=== PATIENT | male | born 1985 | race Caucasian/White ===

== ENCOUNTER 2016-11-14 21:34 | Emergency (ER) | payer MEDICAID ==
[~2016-11-14] VITALS: Ht 180.3 cm; Wt 73.0 kg
[~2016-11-14 21:34] MED LIST: FIORIC PO
[2016-11-14 21:35] VITALS: BP 150/98; PULSE 115; RESP 18; TEMP 98; O2SAT 97
[2016-11-14] MEDS ORDERED: SODIUM CHLORIDE 0.9% FLUSH 5 ML FLUSH IVF PRN (22:30)
[2016-11-14] MEDS ORDERED: KETOROLAC TROMETHAMINE 60 MG/2 ML (IM) VIAL IM ONE (22:30)
[2016-11-14 23:05] LABS: BLOOD, URINE NEG (NEG); COMMENT (UR) CULT NOT INDICATED; CULTURE IF INDICATED CULT NOT INDICATED; GLUCOSE,URINE NEG (NEG); KETONE, URINE 10 mg/dL (NEG); MUCUS URINE MOD /lpf (OCC); NITRITE,URINE NEG (NEG); PH, URINE 5.5 (5.0-8.5); URINE COLOR YELLOW (YELLW/STRAW)
--- NOTE | 2016-11-14 23:45 | RADRPT ---
EXAM DATE/TIME: 11/14/2016 22:50 [place] COMPARISON: No previous studies available for comparison. INDICATIONS : Testicle pain. MEDICAL HISTORY : Left testicle pain. MRSA. SURGICAL HISTORY : None. Right arm has two plates and twelve screws. ENCOUNTER: Initial ACUITY: 3 weeks PAIN SCORE: 4/10 LOCATION: Bilateral testicle. MEASUREMENTS: RIGHT TESTICLE: 4.3 x 3.2 x 2.8 cm LEFT TESTICLE: 4.8 x 3.1 x 1.9 cm FINDINGS: RIGHT TESTICLE: Homogeneous echotexture without intra or extratesticular mass. Blood flow is symmetric and within no rmal limits. There is a minimal hydrocele. No varicocele. Epididymis is within normal limits. LEFT TESTICLE: Homogeneous echotexture without intra or extratesticular mass. Blood flow is symmetric and within no rmal limits. There is a minimal hydrocele. No varicocele. Epididymis is within normal limits. Ther e does appear to be increased flow of the left epididymis. SCROTUM: Within normal limits. CONCLUSION: 1. The testicles appear normal. 2. Increased flow within an otherwise normal left epididymis which could raise the possibility of ehsan e degree of epididymitis. Elier Knight MD on November 14, 2016 at 23:40 Board Certified Radiologist. This report was verified electronically.
--- NOTE | 2016-11-14 23:49 | PD ---
HPI Chief Complaint: Complaint Time Seen by Provider: 22:18 Travel History International Travel<30 days: No Contact w/Intl Traveler<30days: No Traveled to known affect area: No History of Present Illness HPI 31-year-old male here for evaluation of left testicular pain. The patient reports having pain for the last 4 months which have been intermittent, worse last 2 days. Patient feels a slight fullness posterior and superior to his left testicle. He denies trauma. No dysuria. He is sexually active with one partner. PFSH Past Medical History Medical History: Denies Significant Hx Diminished Hearing: No Tetanus Vaccination: Unknown Influenza Vaccination: No Social History Alcohol Use: Yes (OCC) Tobacco Use: Yes (<1/2 PPD) Substance Use: No Allergies-Medications (Allergen,Severity, Reaction): Coded Allergies: *MDRO Multi-Drug Resistant Organism (Unverified Adverse Reaction, Unknown , 11/14/16) MRSA Reported Meds & Prescriptions Reported Meds & Active Scripts Active Fioricet Tab (Acetaminophen/Butalbital/Caffeine) 1 Tab 1 Tab PO Q4H PRN Review of Systems Except as stated in HPI: all other systems reviewed are Neg Physical Exam Narrative GENERAL: Well-developed, well-nourished, comfortable, no acute distress. SKIN: Warm and dry. CARDIOVASCULAR: Regular rate and rhythm. RESPIRATORY: No accessory muscle use. Clear to auscultation. Breath sounds equal bilaterally. GASTROINTESTINAL: Abdomen soft, non-tender, nondistended. : Normal external genitalia. No skin color changes or crepitus. Bilateral testicles are similar in size. Left epididymis is slightly enlarged and slightly tender. No testicular masses. PSYCHIATRIC: Appropriate mood and affect; insight and judgment normal. Data Data Last Documented VS Vital Signs Date Time Temp Pulse Resp B/P Pulse Ox O2 Delivery O2 Flow Rate FiO2 11/14/16 21:35 98.0 115 18 150/98 97 Room Air Orders Urinalysis - C+S If Indicated (11/14/16 22:22) Gc And Chlamydia Pcr (11/14/16 22:22) Us Testicles W Doppler (11/14/16 22:22) Ketorolac Inj (Toradol Inj) (11/14/16 22:30) Sodium Chloride 0.9% Flush (Ns Flush) (11/14/16 22:30) Azithromycin Powd Pack (Zithromax Powd P (11/15/16 00:00) Ceftriaxone Inj (Rocephin Inj) (11/15/16 00:00) Lidocaine 1% Inj (50 Ml) (Xylocaine 1% I (11/15/16 00:00) Labs Laboratory Tests Test 11/14/16 22:30 Urine Color YELLOW Urine Turbidity CLEAR Urine pH 5.5 Urine Specific [place] 1.023 Urine Protein TRACE mg/dL Urine Glucose (UA) NEG mg/dL Urine Ketones 10 mg/dL Urine Occult Blood NEG Urine Nitrite NEG Urine Bilirubin NEG Urine Urobilinogen 2.0 MG/DL Urine Leukocyte Esterase NEG Urine RBC 2 /hpf Urine WBC 4 /hpf Urine Mucus MOD /lpf Microscopic Urinalysis Comment CULT NOT INDICATED MDM Medical Decision Making Medical Screen Exam Complete: Yes Emergency Medical Condition: Yes Differential Diagnosis Epididymitis, varicocele, hydrocele, orchitis, torsion unlikely Narrative Course Vital signs reviewed. Initial heart rate was 115. This improved to a normal rate without any intervention. UA shows moderate mucus, 10 ketones, not suggestive of UTI. Testicular ultrasound: CONCLUSION: 1. The testicles appear normal. 2. Increased flow within an otherwise normal left epididymis which could raise the possibility of some degree of epididymitis. Patient was made aware of all findings. He is resting comfortably. He will be given a dose of IM Rocephin and oral azithromycin here. He works outside in the sun. Because of this I'll not start him on doxycycline and will start him on Levaquin instead. He is stable for discharge home with outpatient follow-up with a urologist this week. He was informed on when to return to the emergency department. He verbalizes understanding and agreement with plan. Diagnosis Primary Impression: Epididymitis Referrals: Derrick Nova DO 1 week Additional Instructions: Follow-up with urologist Dr. Nova or urologist of your choice this week. Take antibiotic as prescribed. Return to the emergency department for worsening symptoms or any other concerns. Scripts Tramadol 50 Mg Tab50 Mg PO Q6H PRN (PAIN) #10 TAB Ref 0 Prov:Trey Clinton MD 11/14/16 Levofloxacin (Levaquin)500 Mg Csm072 Mg PO DAILY 10 Days Ref 0 Prov:Trey Clinton MD 11/14/16 Disposition: DISCHARGE HOME Condition: Stable Trey Clinton MD Nov 14, 2016 23:48
[2016-11-14] MEDS ORDERED: LEVA500T PO (23:54)
[2016-11-14] MEDS ORDERED: TRAM50TA PO (23:54)
[2016-11-15] MEDS ORDERED: cefTRIAXone 250 MG VIAL IM ONE
[2016-11-15] MEDS ORDERED: AZITHROMYCIN PWD FOR SUSP 1 GM PACKET PO ONE
[2016-11-15] MEDS ORDERED: LIDOCAINE HCL 1% 50 ML VIAL XX ONE
[2016-11-15 01:43] LABS: CHLAMYDIA PCR NOT DETECTED (NOT DETECT); NEISSERIA PCR NOT DETECTED (NOT DETECT)
== END 2016-11-15 00:25 | disposition home or self-care (01) ==
LOC: NEPA 21:34
DX: N45.1 Epididymitis (principal); F17.210 Nicotine dependence, cigarettes, uncomplicated
CPT/HCPCS: 76870; 81001; 87491; 87591; 93975; 96372; 99284; J0696; J1885

== ENCOUNTER 2017-07-12 08:44 | Emergency (ER) | payer MEDICAID ==
[~2017-07-12] VITALS: Ht 180.3 cm; Wt 76.0 kg
[~2017-07-12 08:44] MED LIST changes: +LEVA500T PO; +TRAM50TA PO
[2017-07-12 08:46] VITALS: BP 130/86; PULSE 75; RESP 14; TEMP 98.5; O2SAT 98
--- NOTE | 2017-07-12 09:20 | PD ---
HPI Chief Complaint: Oral / Dental Pain or Problem Time Seen by Provider: 09:20 Travel History International Travel<30 days: No Contact w/Intl Traveler<30days: No Traveled to known affect area: No History of Present Illness HPI 32-year-old male presents emergency Department with complaint of left lower dental pain 3 days with worsening this morning when he woke up with left lower facial swelling. Denies fever, vomiting. Denies sore throat or difficulty swallowing. Been taking aspirin for symptom management. Describes pain as an ache. Pain is 10/10. Pain is constantly aggravated. No known relieving factors. Says he has a dentist and follow-up with. Has no medical other complaints. No known allergies. No other modifying factors or associated signs and symptoms. PFSH Past Medical History Diminished Hearing: No Social History Alcohol Use: Yes Tobacco Use: Yes Substance Use: No Allergies-Medications (Allergen,Severity, Reaction): Coded Allergies: *MDRO Multi-Drug Resistant Organism (Unverified Adverse Reaction, Unknown , 11/14/16) MRSA Reported Meds & Prescriptions Reported Meds & Active Scripts Active Peridex Liq (Chlorhexidine Gluconate (Mouth) Liq) 0.12% Soln 15 Ml SWISH-SPIT BID 10 Days Deltasone (Prednisone) 20 Mg Tab 40 Mg PO DAILY 4 Days start 07/13/2017 Clindamycin (Clindamycin HCl) 150 Mg Cap 450 Mg PO Q6H 10 Days Tramadol (Tramadol HCl) 50 Mg Tab 50 Mg PO Q6H PRN Levaquin (Levofloxacin) 500 Mg Tab 500 Mg PO DAILY 10 Days Fioricet Tab (Acetaminophen/Butalbital/Caffeine) 1 Tab 1 Tab PO Q4H PRN Review of Systems Except as stated in HPI: all other systems reviewed are Neg Physical Exam Narrative GENERAL: Well-nourished, well-developed male patient, in no acute distress; afebrile, nontoxic-appearing SKIN: Warm and dry. HEAD: Atraumatic. Normocephalic. Left lower facial edema; without erythema: with tenderness on palpation. No lymphadenopathy. EYES: Pupils equal and round. No scleral icterus. No injection or drainage. ENT: Mucosa pink and moist. No erythema or exudates. No uvular edema. No uvular , palatal, or tonsillar deviation. Airway patent. EARS: Bilateral pinnae and external canals appear within normal limits. Bilateral tympanic membranes without erythema, dullness or perforation. MOUTH: Mucous membranes moist, no lesions, tongue and gums appear normal. Poor dentition throughout. Partially edentulous. Tooth #21 with tenderness on palpation; large dental cavity and decay. Surrounding gingiva is with edema; without erythema, drainage. No obvious abscess noted. NECK: Trachea midline. No lymphadenopathy. CARDIOVASCULAR: Regular rate. RESPIRATORY: No accessory muscle use. GASTROINTESTINAL: Flat. MUSCULOSKELETAL: No obvious deformities. No clubbing. No cyanosis. No edema. NEUROLOGICAL: Awake and alert. Oriented 3. No obvious cranial nerve deficits. Motor grossly within normal limits. Normal speech. PSYCHIATRIC: Appropriate mood and affect; insight and judgment normal. Data Data Last Documented VS Vital Signs Date Time Temp Pulse Resp B/P (MAP) Pulse Ox O2 Delivery O2 Flow Rate FiO2 07/12/17 08:46 98.5 75 14 130/86 (101) 98 Orders Orders Clindamycin Inj (Cleocin Inj) (07/12/17 09:30) Prednisone (Deltasone) (07/12/17 09:30) Ketorolac Inj (Toradol Inj) (07/12/17 09:30) Ed Discharge Order (07/12/17 09:25) [facility] Medical Decision Making Medical Screen Exam Complete: Yes Emergency Medical Condition: Yes Medical Record Reviewed: Yes Differential Diagnosis Dental abscess, dentalgia, infected dental caries, gingivitis Narrative Course 32-year-old male with dental abscess to left lower tooth #21. Patient has left lower facial edema. Patient is afebrile and nontoxic-appearing. Denies fever, vomiting. Clindamycin 600 mg IM, Toradol, Deltasone administered in the ER. Clindamycin, Deltasone, ibuprofen prescribed for home. Patient has a dentist he can follow-up with. Instructed patient to follow up with dentist. Instructed patient to follow up with primary care provider. Patient verbalizes understanding and agreement with treatment plan. Patient is medically cleared and stable for discharge. Discussed reasons to return to the emergency department. Patient agrees with treatment plan. The patients vital signs are stable and the patient is stable for outpatient follow-up and treatment. Patient discharged home, stable and in no acute distress. Diagnosis Primary Impression: Dental abscess Additional Impression: Dental cavities Referrals: [facility] Dentist Primary Care Physician Patient Instructions: Cavity Preventive (For the teeth or gums), Dental Abscess (ED), Dental Caries (ED), General Instructions, Toothache (ED) Departure Forms: Tests/Procedures, Work Release Enter return to work date: Jul 13, 2017 Additional Instructions: Complete full course of antibiotics Ibuprofen or Tylenol as directed and as needed to reduce pain and inflammation Use Peridex as directed for oral hygiene Warm or cool compresses to the affected area Follow-up with dentist Follow-up with primary care provider Return to emergency department immediately with worsening of symptoms Med/Other Pt SpecificInfo: Prescription(s) given Scripts Chlorhexidine Gluconate (Mouth) Liq (Peridex Liq) 0.12% Soln 15 ML SWISH-SPIT BID for 10 Days, #300 ML 0 Refills Prov: Mellisa Mata 07/12/17 Prednisone (Deltasone) 20 Mg Tab 40 MG PO DAILY for 4 Days, #8 TAB 0 Refills start 07/13/2017 Prov: Mellisa Mata 07/12/17 Clindamycin (Clindamycin) 150 Mg Cap 450 MG PO Q6H for Infection for 10 Days, #120 CAP 0 Refills Prov: Mellisa Mata 07/12/17 Disposition: 01 DISCHARGE HOME Condition: Stable Mellisa Mata Jul 12, 2017 09:20
[2017-07-12] MEDS ORDERED: CLIN1CAP5 PO (09:23)
[2017-07-12] MEDS ORDERED: PRED-503 PO (09:24)
[2017-07-12] MEDS ORDERED: PERI0.126 SWISH-SPIT (09:24)
[2017-07-12] MEDS ORDERED: KETOROLAC TROMETHAMINE 60 MG/2 ML (IM) VIAL IM ONE (09:30)
[2017-07-12] MEDS ORDERED: CLINDAMYCIN PHOS 600 MG/4 ML VIAL IM ONE (09:30)
[2017-07-12] MEDS ORDERED: predniSONE 20 MG TAB PO ONE (09:30)
== END 2017-07-12 10:26 | disposition home or self-care (01) ==
LOC: NEPK 08:44
DX: K04.7 Periapical abscess without sinus (principal); K02.9 Dental caries, unspecified; Z72.0 Tobacco use
CPT/HCPCS: 96372; 99284; J1885; J7512

== ENCOUNTER 2017-07-16 01:27 | Emergency (ER) | payer MEDICAID ==
[~2017-07-16] VITALS: Ht 180.3 cm; Wt 72.5 kg
[~2017-07-16 01:27] MED LIST changes: +CLIN1CAP5 PO; +PERI0.126 SWISH-SPIT; +PRED-503 PO
[2017-07-16 01:28] VITALS: BP 149/89; PULSE 94; RESP 16; TEMP 97.7; O2SAT 97
[2017-07-16] MEDS ORDERED: TRAM50TA PO (01:55)
--- NOTE | 2017-07-16 01:56 | PD ---
HPI Chief Complaint: Oral / Dental Pain or Problem Time Seen by Provider: 01:48 Travel History International Travel<30 days: No Contact w/Intl Traveler<30days: No Traveled to known affect area: No History of Present Illness HPI Patient is a 32-year-old male presenting to the emergency department for evaluation of a dental abscess. Patient presented 3 days ago, he was prescribed clindamycin and chlorhexidine mouthwash. He reports compliance. He states that the abscess is localized to the left lower chin. He states the pain is 9 of 10 states is aching. There are no alleviating factors, pain is exacerbated with movement. He denies any fevers or dysphasia. PFSH Past Medical History Medical History: Denies Significant Hx Diminished Hearing: No Social History Alcohol Use: Yes Tobacco Use: Yes Substance Use: No Allergies-Medications (Allergen,Severity, Reaction): Coded Allergies: *MDRO Multi-Drug Resistant Organism (Unverified Adverse Reaction, Unknown , 07/16/17) MRSA Reported Meds & Prescriptions Reported Meds & Active Scripts Active Peridex Liq (Chlorhexidine Gluconate (Mouth) Liq) 0.12% Soln 15 Ml SWISH-SPIT BID 10 Days Deltasone (Prednisone) 20 Mg Tab 40 Mg PO DAILY 4 Days start 07/13/2017 Clindamycin (Clindamycin HCl) 150 Mg Cap 450 Mg PO Q6H 10 Days Physical Exam Narrative GENERAL: Well-developed, well-nourished, alert male. Appears uncomfortable, in no acute distress. SKIN: Warm and dry. Fluctuance noted to the left lower gumline at the lateral incisor, approximately 2 cm. Moderately tender to palpation. The first bicuspid is broken HEAD: Normocephalic. EYES: No scleral icterus. No injection or drainage. NECK: Supple, trachea midline. No JVD or lymphadenopathy. CARDIOVASCULAR: Regular rate and rhythm without murmurs, gallops, or rubs. RESPIRATORY: Breath sounds equal bilaterally. No accessory muscle use. GASTROINTESTINAL: Abdomen soft, non-tender, nondistended. MUSCULOSKELETAL: No cyanosis, or edema. BACK: Nontender without obvious deformity. No CVA tenderness. Data Data Last Documented VS Vital Signs Date Time Temp Pulse Resp B/P (MAP) Pulse Ox O2 Delivery O2 Flow Rate FiO2 07/16/17 01:28 97.7 94 16 149/89 (109) 97 Room Air Orders Orders Wound Culture And Gram Stain (07/16/17 01:49) Oxycodone-Acetamin 5-325 Mg (Percocet (07/16/17 02:00) Ed Discharge Order (07/16/17 01:49) MDM Medical Decision Making Medical Screen Exam Complete: Yes Emergency Medical Condition: Yes Medical Record Reviewed: Yes Interpretation(s) Vital Signs Date Time Temp Pulse Resp B/P (MAP) Pulse Ox O2 Delivery O2 Flow Rate FiO2 07/16/17 01:28 97.7 94 16 149/89 (109) 97 Room Air Differential Diagnosis Abscess versus dental caries versus cellulitis versus other Narrative Course Patient presented reevaluation of dental abscess. He has been compliant with antibiotics and area of fluctuance is localized. Please see procedure report for I&D. Cultures obtained and pending. Patient is to continue he was a prescribed antibiotics and chlorhexidine mouthwash. Encouraged follow-up with his dentist. He was also encouraged return to emergency department for any new or worsening symptoms. Patient verbalized understanding, patient stable for discharge. Procedures Procedure Narrative After the risks and benefits were discussed the following procedure was performed: INCISION AND DRAINAGE OF ABSCESS: The area was prepped and was sterilely draped. A subcutaneous wheal of 1 % Xylocaine with a total number 1 mL was used to anesthetize the area. The area was properly anesthetized. A number 11 scalpel was used to make a 0.5 -cm incision across the area of the abscess. Cultures were obtained. The abscess was drained an irrigated with normal saline. Patient tolerated well. Gauze applied for pressure. Diagnosis Primary Impression: Dental abscess Additional Impression: Encounter for incision and drainage procedure Referrals: Dentist 3 days Patient Instructions: Dental Abscess (ED), General Instructions, Incision and Drainage (ED) Additional Instructions: Follow-up with your dentist in 2-3 days Continued antibiotics as previously prescribed Continue mouthwash as previously prescribed Do not drive or operate machinery while taking narcotic pain medication Return to emergency department for any new or worsening symptoms Med/Other Pt SpecificInfo: Prescription(s) given Scripts Tramadol (Tramadol) 50 Mg Tab 50 MG PO Q6H Y for PAIN, #6 TAB 0 Refills Prov: Germania Purdy 07/16/17 Disposition: 01 DISCHARGE HOME Condition: Stable Germania Purdy Jul 16, 2017 01:56
[2017-07-16] MEDS ORDERED: oxyCODONE/ACETAMINOPHEN 5 MG/325 MG TAB PO ONE (02:00)
== END 2017-07-16 02:08 | disposition home or self-care (01) ==
LOC: NEPD 01:27
DX: K04.7 Periapical abscess without sinus (principal); L02.01 Cutaneous abscess of face; B95.4 Other streptococcus as the cause of diseases classified elsewhere; Z72.0 Tobacco use
CPT/HCPCS: 10060; 87070